=== PATIENT | male | born 1995 | race Caucasian/White ===

== ENCOUNTER → 2024-03-08 | Outpatient (CLI) | payer OTHER | LOC: M SOG 07:57 | PROVIDERS: ATTEND Physician Assistant | DX: M25.561 Pain in right knee (principal) ==

== ENCOUNTER → 2024-03-23 | Outpatient (CLI) | payer OTHER | LOC: M SOG 07:49 | PROVIDERS: ATTEND Physician Assistant | DX: Z53.9 Procedure and treatment not carried out, unspecified reason (principal) ==

== ENCOUNTER 2024-04-02 15:01 | Outpatient (RCR) | payer OTHER, SELFPAY | END 2024-04-03 | LOC: M PT 15:01 | PROVIDERS: ATTEND Physician Assistant | DX: M25.561 Pain in right knee (principal) ==

== ENCOUNTER → 2024-05-04 | Outpatient (RCR) | payer OTHER | LOC: M PT 04-13 15:45 | PROVIDERS: ATTEND Physician Assistant | DX: M25.561 Pain in right knee (principal) | CPT/HCPCS: 97110; G0283 ==

== ENCOUNTER 2024-05-10 13:38 | Outpatient (RCR) | payer OTHER | END 2024-06-01 | LOC: M PT 13:38 | PROVIDERS: ATTEND Physician Assistant | DX: M25.561 Pain in right knee (principal) | CPT/HCPCS: 97110; G0283 ==

== ENCOUNTER → 2024-05-23 | Outpatient (CLI) | payer OTHER | LOC: M RAD 16:26 | PROVIDERS: ATTEND Physician Assistant | DX: M25.561 Pain in right knee (principal); M25.461 Effusion, right knee ==

== ENCOUNTER 2024-06-10 07:56 | Emergency (ER) | payer OTHER ==
[~2024-06-10] VITALS: Ht 182.9 cm; Wt 71.9 kg
[2024-06-10 09:10] LABS: BASO % 0.2 % (0.0-1.0); HEMATOCRIT 49.6 % (42.0-52.0); LYMPH # 0.2 10^3/uL (1.5-5.0); LYMPH % 1.2 % (24.0-44.0); MEAN CORPUSCULAR HEMOGLOBIN 30.5 pg (27.0-33.0); MEAN CORPUSCULAR HGB CONC 34.3 g/dl (32.0-36.5); MEAN CORPUSCULAR VOLUME 88.9 fl (80.0-96.0); MONO # 0.7 10^3/uL (0.0-0.8); MONO % 4.6 % (2.0-8.0); NEUTROPHILS # 13.5 10^3/uL (1.5-8.5); NEUTROPHILS % 93.6 % (36.0-66.0); PLATELET COUNT, AUTOMATED 261 10^3/uL (150-450); RED BLOOD COUNT 5.58 10^6/uL (4.30-6.10); WHITE BLOOD COUNT 14.4 10^3/uL (4.0-10.0)
[2024-06-10 09:40] LABS: LIPASE 26 U/L (12-53)
[2024-06-10 09:42] LABS: ALBUMIN 4.6 G/DL (3.2-5.2); ALKALINE PHOSPHATASE 63 U/L (40-129); ALT/SGPT 17 U/L (7.0-40); AST/SGOT 17 U/L (<34); BILIRUBIN,DIRECT 0.5 MG/DL (<0.4); BILIRUBIN,TOTAL 1.5 MG/DL (0.3-1.2); BLOOD UREA NITROGEN 24 MG/DL (9-23); CALCIUM LEVEL 9.7 MG/DL (8.5-10.1); CARBON DIOXIDE LEVEL 24 MMOL/L (20-31); CHLORIDE LEVEL 103 MMOL/L (98-107); CREATININE FOR GFR 0.93 MG/DL (0.70-1.30); GLOMERULAR FILTRATION RATE > 60.0 (>60); GLUCOSE, FASTING 124 MG/DL (60-100); POTASSIUM SERUM 4.1 MMOL/L (3.5-5.1); SODIUM LEVEL 138 MMOL/L (136-145); TOTAL PROTEIN 7.9 G/DL (5.7-8.2)
[2024-06-10] MEDS: ONDANSETRON 4MG 2ML VIAL IV ONE (10:15)
[2024-06-10] MEDS: NS (Normal Saline) 0.9% 1,000 ML IV ONE (10:24)
[2024-06-10] MEDS: KETOROLAC 30 MG/ML 1ML VIAL IV ONE (11:20)
[2024-06-10] MEDS ORDERED: ONDA-282 PO (13:08)
[2024-06-10 13:16] VITALS: BP 124/61; TEMP 98.5; O2SAT 97
== END 2024-06-10 13:32 | disposition home or self-care (01) ==
LOC: M ED 07:56
DX: A08.4 Viral intestinal infection, unspecified (principal); B34.1 Enterovirus infection, unspecified; R11.2 Nausea with vomiting, unspecified; E86.0 Dehydration; R79.9 Abnormal finding of blood chemistry, unspecified; F12.10 Cannabis abuse, uncomplicated; F10.10 Alcohol abuse, uncomplicated; Z88.0 Allergy status to penicillin; Z88.1 Allergy status to other antibiotic agents; Z79.83 Long term (current) use of bisphosphonates
CPT/HCPCS: 80048; 80076; 83690; 85025; 87486; 87581; 87633; 87798; 96361; 96374; 96375; 99283; J1885; J2405